=== PATIENT | female | born 1940 ===

== ENCOUNTER 2024-06-11 14:40 | Outpatient (CLI) | payer OTHER | END 2024-06-15 14:44 | disposition home or self-care (01) | LOC: SONOGRAMA 14:40 | PROVIDERS: ATTEND Pathology Anatomic Pathology & Clinical Pathology | DX: D34 Benign neoplasm of thyroid gland (principal); E07.89 Other specified disorders of thyroid; E04.1 Nontoxic single thyroid nodule ==